=== PATIENT | male | born 1990 | race Caucasian/White ===

== ENCOUNTER 2016-12-03 13:49 | Emergency (ER) | payer SELFPAY ==
[2016-12-03] MEDS ORDERED: IBUPROFEN 800 MG TABLET PO ONE (14:18)
--- NOTE | 2016-12-03 14:36 | ER Document Report ---
HPI - HPI Patient complains to provider of: left middle finger injury Onset: Just prior to arrival Onset/Duration: Sudden Severity: Severe Pain Level: 4 Context: patient presents to the emergency department with left middle finger abrasion and pain. Patient reports he was moving logs in his backyard when 2 logs fell on his finger. He complains of pain with movement. Reports tetanus shot is up- to-date. Has small abrasion to his left dorsal pip middle finger. Associated Symptoms: None Exacerbated by: Movement Relieved by: Denies Similar symptoms previously: No Recently seen / treated by doctor: No - DERM Skin Color: Normal Past Medical History - General Information source: Patient - Social History Smoking Status: Current Every Day Smoker Cigarette use (# per day): Yes Frequency of alcohol use: None Drug Abuse: None Family History: Reviewed & Not Pertinent Patient has suicidal ideation: No Patient has homicidal ideation: No - Medical History Medical History: Negative Renal/ Medical History: Denies: Hx Peritoneal Dialysis Surgical Hx: Negative - Immunizations Hx Diphtheria, Pertussis, Tetanus Vaccination: Yes Vertical Provider Document - CONSTITUTIONAL Agree With Documented VS: Yes Exam Limitations: No Limitations General Appearance: WD/WN, Mild Distress - winces when finger palpated - INFECTION CONTROL TRAVEL OUTSIDE OF THE [place] IN LAST 30 DAYS: No - HEENT HEENT: Atraumatic, Normocephalic - NECK Neck: Normal Inspection, Supple - RESPIRATORY Respiratory: No Respiratory Distress O2 Sat by Pulse Oximetry: 100 - CARDIOVASCULAR Cardiovascular: Regular Rate - MUSCULOSKELETAL/EXTREMETIES Musculoskeletal/Extremeties: Tender - left middle finger with abrasion at pip, swelling, brisk cap refill, c/o pain with any movement - NEURO Level of Consciousness: Awake, Alert, Appropriate - DERM Integumentary: Warm, Dry Adult Front & Back Diagram: 1 - abrasion, swelling Course - Re-evaluation Re-evalutation: 12/03/16 15:13 No fx, pt instructed on care of abrasion, importance of keeping clean, he verbalized understanding. - Vital Signs Vital signs: Temp Pulse Resp BP Pulse Ox 98.4 F 78 18 125/72 100 12/03/16 13:52 12/03/16 13:52 12/03/16 13:52 12/03/16 13:52 12/03/16 13:52 - Diagnostic Test Radiology reviewed: Image reviewed, Reports reviewed - SOFT TISSUE SWELLING Procedures - Immobilization Left 3rd digit Pre-Proc Neuro Vasc Exam: Normal Immobilizer type: Finger splint (Static) Performed by: PCT Post-Proc Neuro Vasc Exam: Unchanged from pre-exam Discharge - Discharge Clinical Impression: Elevated blood pressure reading, Abrasion Injury of left middle finger Qualifiers: Encounter type: initial encounter Qualified Code(s): S69.92XA - Unspecified injury of left wrist, hand and finger(s), initial encounter Condition: Stable Disposition: HOME, SELF-CARE Instructions: Abrasions ([facility]), Use of Tlzi-[id number]-Gdiktqi Ibuprofen ([facility]) Additional Instructions: *You have been evaluated for left middle finger injury, abrasion, elevated blood pressure reading *Keep the abrasion clean *Maintain the splint for comfort *Rest/Ice/Elevate the finger *Follow up with a primary care provider within one week for recheck *Take ibuprofen as indicated *Return to ED for worsening condition, changes, needs Monitor your blood pressure. Your blood pressure was elevated today. This may be because you were anxious, in pain or because you need medication. It is important to follow up with your primary care provider for full evaluation. Forms: Elevated Blood Pressure
[2016-12-03 15:42] VITALS: BP 114/61
== END 2016-12-03 15:40 | disposition home or self-care (01) ==
LOC: ER 13:49
DX: S60.413A Abrasion of left middle finger, initial encounter (principal); W20.8XXA Other cause of strike by thrown, projected or falling object, initial encounter; Y93.89 Activity, other specified; R03.0 Elevated blood-pressure reading, without diagnosis of hypertension; F17.210 Nicotine dependence, cigarettes, uncomplicated
CPT/HCPCS: 99283

== ENCOUNTER 2017-10-21 18:59 | Emergency (ER) | payer SELFPAY ==
--- NOTE | 2017-10-21 20:21 | RADIOLOGY REPORT (SQ) ---
EXAM DESCRIPTION: FOOT LEFT COMPLETE COMPLETED DATE/TIME: 10/21/2017 7:57 pm REASON FOR STUDY: STEPPED ON THORN, CONTINUED PAIN COMPARISON: None. NUMBER OF VIEWS: Three views. TECHNIQUE: AP, lateral and oblique radiographic images acquired of the left foot. LIMITATIONS: None. FINDINGS: MINERALIZATION: Normal. BONES: No acute fracture or dislocation. No worrisome bone lesions. JOINTS: No effusions. SOFT TISSUES: No soft tissue swelling. No foreign body. OTHER: No other significant finding. IMPRESSION: NEGATIVE STUDY OF THE LEFT FOOT. NO RADIOGRAPHIC EVIDENCE OF ACUTE INJURY. NO RADIOPAQU E FOREIGN BODY. TECHNICAL DOCUMENTATION: JOB ID: [id number] [employer]- All Rights Reserved Reading location - IP/workstation name: [email or web address]
--- NOTE | 2017-10-21 20:45 | ER Document Report ---
ED Extremity Problem, Lower - General Chief Complaint: Foot Injury Stated Complaint: FOOT PAIN Time Seen by Provider: 10/21/17 19:46 Mode of Arrival: Ambulatory Information source: Patient TRAVEL OUTSIDE OF THE [place] IN LAST 30 DAYS: No - HPI Patient complains to provider of: Injury Location: Foot Notes: Patient is here with complaints of left foot pain. He states that he was walking with shoes on through [place] when he externally stepped on a branch that had a large thorn in it. Phone went through the sole of the shoe and into his foot. Patient states that he continues to have pain and the pain seems to be getting somewhat worse. Is concerned there may still be a piece of the foreign stuck in his foot. He denies fevers. He denies redness. No drainage. No nausea, vomiting, diarrhea. No numbness, tingling, weakness. Tetanus is up-to- date. He denies any other injuries or any other complaints at this time. Pain is worse with walking, nothing seems to make it better. - Related Data Allergies/Adverse Reactions: No Known Allergies Allergy (Verified 10/21/17 19:01) Past Medical History - Social History Smoking Status: Unknown if Ever Smoked Family History: Reviewed & Not Pertinent Patient has suicidal ideation: No Patient has homicidal ideation: No Renal/ Medical History: Denies: Hx Peritoneal Dialysis - Immunizations Hx Diphtheria, Pertussis, Tetanus Vaccination: Yes Review of Systems - Review of Systems -: Yes All other systems reviewed and negative Physical Exam - Vital signs Vitals: Temp Pulse Resp BP Pulse Ox 98.9 F 87 16 131/67 H 99 10/21/17 19:03 10/21/17 19:03 10/21/17 19:03 10/21/17 19:03 10/21/17 19:03 - Notes Notes: GENERAL: alert, cooperative, nontoxic, no distress. HEAD: normocephalic, atraumatic EYES: conjunctiva pink without discharge, no external redness or swelling. EARS: no external swelling, no external redness NOSE: atraumatic, no external swelling MOUTH/THROAT: mucous membranes moist and pink NECK: soft, supple, full range of motion, no meningismus. CHEST: no distress, lungs clear and equal throughout. No wheezing, rales, rhonchi. CARDIAC: regular rate and rhythm, no murmur, normal capillary refill, normal pulses. BACK: full range of motion, no CVA tenderness. EXTREMITIES: full range of motion of all extremities. No redness, no swelling. Small area from puncture to the bottom of the left foot. There is no surrounding erythema. There is no foreign body visualized or palpated. No drainage. Full range of motion of the foot and the toes. Normal neurovascular exam distally. NEURO: alert and oriented 3, no focal deficits, full range of motion of all extremities. PYSCH: appropriate mood, affect. Patient is cooperative. SKIN: pink, warm, dry, no rash. Course - Re-evaluation Re-evalutation: 10/21/17 20:42 Patient is nontoxic. Stable vitals. The patient was walking through [place] with his shoes on when a thorn went through the bottom of his shoe poking the bottom of his foot. He continues to have pain to this area. Concerned that there is potentially still something stuck in the foot. On exam there is no obvious foreign body identified. There is no significant signs of infection. X -ray shows no obvious foreign body. Was not able to appreciate an obvious foreign body on ultrasound. I offered an attempt to blindly search for thorn, this was declined at this time. Patient will be discharged home on Emeterioro, Dhaval, Brian. Instructed to soak his foot in warm soapy water. Follow-up if not improving in the next 3-5 days, sooner for increasing pain, fever, redness, drainage, any further concerns. The patient is noted to have elevated blood pressure during today's emergency department visit. The patient was informed of this finding. The patient was instructed that this may be related to pre-hypertension and requires further evaluation with a primary care provider. The patient has no hypertensive symptoms at this time. The patient's emergency department workup and current diagnosis were explained to the patient and or family. Follow-up instructions were provided. Medications if prescribed were discussed. Instructions for when to return to the emergency department including specific worrisome symptoms were discussed with the patient and/or family. - Vital Signs Vital signs: Temp Pulse Resp BP Pulse Ox 98.9 F 87 16 131/67 H 99 10/21/17 19:03 10/21/17 19:03 10/21/17 19:03 10/21/17 19:10/21/17 19:03 - Diagnostic Test Radiology reviewed: Image reviewed, Reports reviewed - Left foot without fracture or foreign body per the radiologist. Discharge - Discharge Clinical Impression: Puncture wound of left foot Qualifiers: Encounter type: initial encounter Qualified Code(s): S91.332A - Puncture wound without foreign body, left foot, initial encounter Condition: Stable Disposition: HOME, SELF-CARE Instructions: Puncture Wound ([facility]) Additional Instructions: Take medications as prescribed. Soak your foot in warm soapy water. Follow-up if not improving in the next 3-5 days, sooner for increasing pain, fever, redness, drainage, any further concerns. Your blood pressure was elevated during today's visit. Have this rechecked with your doctor. The medication you were prescribed today may cause drowsiness. Do not drive or operate heavy machinery while taking this medication. Prescriptions: Tramadol HCl [Ultram 50 mg Tablet] 50 mg PO Q6HP PRN #12 tablet PRN Reason: Ciprofloxacin HCl [Cipro 500 mg Tablet] 500 mg PO BID #20 tablet Naproxen [Naprosyn] 500 mg PO BID #20 tablet Forms: Elevated Blood Pressure, Smoking Cessation Education Referrals: [facility] [Provider Group] - Follow up as needed
[2017-10-21 20:59] VITALS: BP 125/69
== END 2017-10-21 20:58 | disposition home or self-care (01) ==
LOC: ER 18:59
DX: S91.332A Puncture wound without foreign body, left foot, initial encounter (principal); R03.0 Elevated blood-pressure reading, without diagnosis of hypertension; W22.09XA Striking against other stationary object, initial encounter; Y92.828 Other wilderness area as the place of occurrence of the external cause
CPT/HCPCS: 99283